=== PATIENT | female | born 1965 | race Hispanic/Latino ===

== ENCOUNTER 2023-03-31 09:13 | Emergency (ER) | payer BC ==
[~2023-03-31] VITALS: Ht 157.5 cm; Wt 56.7 kg
[2023-03-31 12:10] VITALS: BP 158/72; PULSE 70; RESP 18; O2SAT 100
== END 2023-03-31 12:16 | disposition home or self-care (01) ==
LOC: EDH 09:13
DX: R13.19 Other dysphagia (principal); K13.0 Diseases of lips; L80 Vitiligo; I10 Essential (primary) hypertension; E11.9 Type 2 diabetes mellitus without complications; Z88.8 Allergy status to other drugs, medicaments and biological substances
CPT/HCPCS: 71045

== ENCOUNTER 2023-07-30 11:12 | Emergency (ER) | payer BC ==
[~2023-07-30] VITALS: Ht 157.5 cm; Wt 51.3 kg
[2023-07-30 12:12] LABS: BASOPHILS # (AUTO) 0.05 K/uL (0.00-0.20); BASOPHILS % (AUTO) 0.8 % (0.0-5.0); HEMATOCRIT 28.5 % (36-48); IMMATURE GRANULOCYTE ABSOLUTE 0.02 K/uL (0-1); LYMPHOCYTES % (AUTO) 31.1 % (21.0-51.0); MEAN CORPUSCULAR HEMOGLOBIN 19.3 pg (27.0-33.0); MEAN CORPUSCULAR HGB CONC 30.2 g/dL (32.0-36.0); MONOCYTES # (AUTO) 0.4 K/uL (0.1-1.0); MONOCYTES % (AUTO) 5.5 % (3.0-13.0); NEUTROPHILS # (AUTO) 4.1 K/uL (1.8-7.7); NEUTROPHILS % (AUTO) 62.3 % (40.0-77.0); PLATELET COUNT (AUTO) 386 K/uL (130-400); RED BLOOD CELL COUNT(AUTO) 4.45 MIL/uL (4.00-5.50); RED CELL DISTRIBUTION WIDTH 21.9 % (11.0-15.5); WHITE BLOOD COUNT (AUTO) 6.5 K/uL (4.8-10.8)
[2023-07-30 12:21] LABS: CREATININE 0.6 mg/dL (0.5-1.0)
[2023-07-30 12:25] LABS: ALBUMIN 3.1 g/dL (3.5-5.0); BILIRUBIN,DIRECT 0.1 mg/dL (0.0-0.3); BILIRUBIN,TOTAL 0.3 mg/dL (0.2-1.0); TOTAL PROTEIN, SERUM 8.1 g/dL (6.0-8.3)
[2023-07-30 12:43] LABS: B-TYPE NATRIURETIC PEPTIDE 71 pg/mL (0-100)
[2023-07-30 18:44] VITALS: BP 138/68; PULSE 80; RESP 16; O2SAT 100
== END 2023-07-30 18:52 | disposition home or self-care (01) ==
LOC: EDH 11:12
DX: R07.9 Chest pain, unspecified (principal); I10 Essential (primary) hypertension; E11.9 Type 2 diabetes mellitus without complications; D64.9 Anemia, unspecified; Z98.890 Other specified postprocedural states; Z88.6 Allergy status to analgesic agent
CPT/HCPCS: 36415; 71045; 80048; 80076; 83880; 84484; 85025; 93005